=== PATIENT | male | born 1975 | race Caucasian/White ===

== ENCOUNTER → 2017-05-26 | Outpatient (CLI) | payer OTHER ==
[~2017-05-26] MED LIST: FAMO10TA50 PO; FRCT/ PO; NORT10CA3 PO
--- NOTE | 2017-05-26 09:45 | DIAGNOSTIC IMAGING REPORT ---
L ANKLE MIN 3 VIEWS ROUTINE, L FOOT MIN 3 VIEWS ROUTINE CLINICAL HISTORY: 41 years-old Male presenting with L FOOT/ANKLE PAIN, rolled foot on 05/25/2017, pain in the lateral aspect of the left ankle and dorsal aspect of the left foot. TECHNIQUE: Frontal, mortise, and lateral views of the left ankle and frontal, oblique, and lateral views of the left foot were obtained. COMPARISON: None. FINDINGS: Left ankle: Ankle mortise intact. No acute fracture or malalignment. No radiographic evidence of soft tissue swelling. No significant degenerative change. Bone island suspected in the distal tibial metaphysis. Left foot: No acute fracture or malalignment. No significant degenerative change. No radiographic evidence of soft tissue swelling. IMPRESSION: 1. No acute osseous injury of the left ankle. 2. No acute osseous injury of the left foot. Electronically signed by: Charly Lopez M.D. 05/26/2017 9:44 AM Dictated Date/Time: 05/26/2017 9:42 AM
== END | disposition home or self-care (01) ==
LOC: C.RAD1850 09:30
PROVIDERS: ATTEND Nurse Practitioner Adult Health
DX: M79.672 Pain in left foot (principal); M25.572 Pain in left ankle and joints of left foot